=== PATIENT | male | born 1965 | race Caucasian/White ===

== ENCOUNTER 2018-09-17 07:36 | Outpatient (CLI) | payer OTHER ==
--- NOTE | 2018-09-17 08:58 | MRI Report ---
Reason: CERVICALGIA Procedure Date: 09/17/2018 Accession Number: [id number] / [id number] Procedure: MRI - Cervical Spine W/O CPT Code: FULL RESULT: EXAM: MRI CERVICAL SPINE WITHOUT CONTRAST EXAM DATE: 09/17/2018 08:19 AM. CLINICAL HISTORY: Cervicalgia. COMPARISONS: CERVICAL SPINE W/O 02/15/2016 11:00 AM. TECHNIQUE: Multiplanar, multisequence T1-weighted and fluid-sensitive sequences of the cervical spine without contrast. Other: None. FINDINGS: Neurologic Structures: The visualized posterior fossa structures are unremarkable. No signal abnormality in the visualized spinal cord. Alignment: No change in alignment. Bone Marrow: Chronic degenerative endplate signal changes at C5-C6. Interspace Levels/Facets: C1-C2: Unremarkable. C2-C3: Stable degenerative changes including mild left foraminal narrowing and left side facet arthropathy. C3-C4: Mild degenerative disk disease. Mild central canal stenosis from broad-based posterior disk protrusion, stable moderate to severe foraminal stenosis on the left, asymmetric uncinate process spurring and marked facet arthropathy on the left side. Patent right foramen. C4-C5: Mild to moderate central canal stenosis from central to left posterior paracentral disk protrusion, not significantly changed. Mild right and moderate left degenerative foraminal stenosis also appears stable. No additional disk space narrowing. C5-C6: Again seen are findings of moderate to marked degenerative disk disease and mild to moderate facet arthropathy. Bilateral marginal spurring. Circumferential disk bulge with additional asymmetric moderately large left of midline disk protrusion, similar to prior. Moderate central stenosis with ventral cord flattening and severe stenosis of the left foramen and left lateral recess, similar to prior. Also stable are findings of moderate to severe right foraminal stenosis. C6-C7: Stable-appearing moderately large broad-based disk herniation to the left of midline. This indents the ventral thecal sac and extends to the left creating at least moderate stenosis of the left lateral recess before entering the left neural foramen creating the appearance of moderate to severe left foraminal stenosis. Stable-appearing moderate right foraminal stenosis. C7-T1: Unremarkable. Musculature: Normal. No edema or fatty atrophy. Other: None. IMPRESSION: 1. No new or acute abnormality. 2. Stable degenerative changes at L2-L3 including mild left foraminal stenosis and asymmetric left facet arthropathy. 3. Stable degenerative changes at C3-C4 where there is severe left foraminal stenosis. 4. Stable degenerative changes at C4-C5 with mild to moderate central stenosis and left worse than right foraminal stenosis. 5. Stable-appearing degenerative changes at C5-C6 where there is prominent left of midline disk protrusion with spurring, moderate central stenosis, severe left lateral recess stenosis, severe left foraminal stenosis and at least moderate right foraminal stenosis. 6. Stable prominent stenosis as described on the left from a large asymmetric left of midline disk herniation. 7. No additional ventral cord compression or developing cord signal abnormality. 8. No significant change in alignment. 9. Persistent prominent degenerative endplate signal changes at C5-C6. RADIA
== END 2018-09-17 07:37 | disposition home or self-care (01) ==
LOC: DI 07:36
PROVIDERS: ATTEND Physician Assistant
DX: M50.31 Other cervical disc degeneration, high cervical region (principal); M48.02 Spinal stenosis, cervical region; M47.9 Spondylosis, unspecified; M50.221 Other cervical disc displacement at C4-C5 level
CPT/HCPCS: 72141

== ENCOUNTER 2019-02-09 10:48 | Outpatient (CLI) | payer OTHER ==
[2019-02-09 11:59] VITALS: BP 110/70
--- NOTE | 2019-02-09 11:59 | CONSULTATION NOTE ---
Information from patient questionnaire entered by Ling Farmer. I have reviewed and concur with the information entered by Ling Farmer. This document represents the service I personally performed and the decisions made by me, Shasha Almaraz, RN, MSN, ATTENDANT [employer]. - History of Present Illness Chief Complaint: Snoring, Observed pauses in breathing, Fatigue The patient presents here today for evaluation of possible sleep disordered breathing. He has been observed to snore and have pauses in breathing with fatigue for the past 8 years. He had a sleep study done several years ago. He was told he did not have apnea but had restless leg syndrome which was not bothering him or his spouse so no treatment was indicated. When he recently went to the [place] for pending prison , upon review of his medical records, he was informed that he had apnea in the sleep study previously completed and was advised to have another sleep study for re-evaluation. The patient tells me that he normally goes to bed around 10:15 pm, and it takes him approximately 10-15 minutes to fall asleep. He has been told that he snores loudly and irregularly at night. He is wakened by spouse to sleep on his side where snoring is less. He has been observed to stop breathing in his sleep. His sometimes has to sleep in another room due to the loudness of his snoring. He can recall waking up on the average of 1-2 times during the night. Most of the time he wakes up because of using the bathroom. He has occasionally awakened for his own snoring but not choking or gasping for air. There is a lot of tossing and turning in his sleep. Generally he can recall having dreams. He usually wakes up at 5:30 am and sometimes feels refreshed. He usually does have a morning headache. During the day he complains of feeling sleepy and fatigued. He has never fallen asleep while driving nor has any accident due to sleepiness. He usually naps for about 60 minutes during the day on weekend when working and opportunity. Since prison, he napped daily for 1-2 hours until he went on vacation recently. He reports if busy, he does not nap. If he naps, upon falling asleep during the day he denies having vivid dreams. There is somniloquy (sleep talking) but no somnambulism (sleep walking). He has never experienced sleep paralysis, cataplexy, or symptoms of restless leg syndrome. He denies having impaired concentration during the day. 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 Patient is and lives in [place]. Smoked in the past 12 months: Yes Cigarettes per day (20/pack): 10 Years of smokin Smoking Pack Years: 10.0 Alcohol use: Yes Amount and frequency: 1 beer 1-2 times a week Caffeine use: Yes Amount and frequency: 2 cups of coffee a day - Family History Family history of sleep disordered breathing: No - Review of Systems Weight loss over past 5 years: 8 pounds since prison Cardiovascular: reports: high blood pressure. denies: palpitations, chest pain, irregular heart rate or pulse, leg or foot swelling, have to sleep sitting up, other: Respiratory: denies: shortness of breath, wheeze, sputum production, chronic cough, other: Gastrointestinal: denies: heartburn, difficulty swallowing (nocturia), nausea, vomitting, diarrhea, abdominal pain, other: Urinary: reports: frequency Neurological: denies: headaches, seizure, head trauma, disorientation, speech dysfunction, gait or balance problems, fainting or unconsciousness, other: Psychiatric: denies: Attention Deficit Hyperactivity, anxiety, depression, mood disorder, claustrophobia, other: Ear/Nose/Throat: reports: wisdom teeth removed. denies: nasal congestion, sinus problems, nose bleeds, dry mouth/throat, hoarseness, injury to nose, tonsillectomy, other: Endocrine: denies: thyroid disease, history of goiter, sluggishness, too hot or cold, excessive thirst, increased appetite, increased urination, unexplained weakness, other: Musculoskeletal: reports: joint pain (intermittent), neck pain (recent MRI completed), back pain (intermittent). denies: joint swelling, muscle pain or cramping, mobility problems, other: Immunologic: denies: sneezing, rash, itching, allergies to food or environment, other: - Physical Examination Blood Pressure: 110/70 Cuff size: long Heart Rate: 72 O2 Saturation: 98 Height: 6 ft 3 in Weight (kg): 96.162 kg Body Mass Index: 26.4 BMI Classification: Overweight Neck circumference: 16.5 HEENT: No craniofacial malformation Nostrils: partially obstructed Turbinates: normal Septum: deviated right Mouth and throat: narrow oropharynx Soft palate: long Hard palate: normal Uvula: normal Tongue: normal in size Tonsils: small Chin and jaw: Overjet Neck: normal w/o lymphadenopathy or thyromegaly Heart: regular rate and rhythm Lungs: clear bilaterally Abdomen: soft, non-tender Extremities: no edema or clubbing Neurologic: intact - Impression 1. Suspected Obstructive Sleep Apnea-Hypopnea Syndrome, as suggested by a history of loud and irregular snoring, observed cessation of breath while asleep, frequent awakening during the night, unrefreshed sleep, and excessive daytime sleepiness requiring a nap when he is not too busy. Narrow oropharynx and obesity are common predisposing factors for obstructive sleep apnea-hypopnea syndrome. Essential hypertension has been shown to be caused by untreated sleep apnea. I recommend proceeding to polysomnography to confirm the diagnosis and to assess severity. If the patient has significant sleep disordered breathing, a manual CPAP titration study will also be performed to find the optimal treatment pressure. I informed the patient of what the sleep studies involve and after some discussion, obtained agreement to proceed. The pathophysiology of obstructive sleep apnea-hypopnea syndrome was discussed with the patient and health risks of cardiovascular and cerebrovascular disease if not treated. AAS brochure for obstructive sleep apnea-hypopnea syndrome given and reviewed. Risks of drowsy driving discussed in detail and patient advised to avoid long distance driving and to tobacco sample puller at the first sign of drowsiness. Patient agreed to plan. - Plan Schedule polysomnography Avoid long distance driving or driving when feeling sleepy. Avoid alcohol, sedative and muscle relaxant around bedtime. Attempt to lose weight. Review instructions provided by trained office staff on how to prepare for the sleep study. Return for follow-up after sleep study completed to review results and initiate therapy. I spent 100% of this 35 minute visit face to face with the patient with greater than 50% of this was spent time counseling the patient and coordination of care.
== END 2019-02-09 10:49 | disposition home or self-care (01) ==
LOC: SC 10:48
PROVIDERS: ATTEND Nurse Practitioner Family
DX: R06.83 Snoring (principal); G47.8 Other sleep disorders; G47.10 Hypersomnia, unspecified; E66.3 Overweight; Z68.26 Body mass index [BMI] 26.0-26.9, adult
CPT/HCPCS: 99203; 99212

== ENCOUNTER 2019-02-27 19:33 | Outpatient (CLI) | payer OTHER | END 2019-02-27 19:34 | disposition home or self-care (01) | LOC: SC 19:33 | PROVIDERS: ATTEND Internal Medicine Pulmonary Disease | DX: G47.33 Obstructive sleep apnea (adult) (pediatric) (principal); G47.61 Periodic limb movement disorder | CPT/HCPCS: 95810 ==

== ENCOUNTER 2019-03-10 10:10 | Outpatient (CLI) | payer OTHER ==
--- NOTE | 2019-03-10 11:07 | SLEEP CARE CONSULTATION ---
Information from patient questionnaire entered by Ling Farmer. I have reviewed and concur with the information entered by Ling Farmer. This document represents the service I personally performed and the decisions made by me, Shasha Almaraz RN, MSN, CONSUMER SERVICES ADVISOR. History of Present Illness Initial [place] Sleepiness Scale score: 8 Current [place] Sleepiness Scale score: 2 Additional HPI information: FIORELLA YIN returns for follow up of the recently performed polysomnography and patient was informed of the findings: I explained the pathophysiology behind obstructive sleep apnea. We then spent quite a bit of time discussing different treatment options. For mild obstructive sleep apnea, surgery and oral appliance are alternatives to nasal CPAP therapy but in moderate or severe cases, nasal CPAP is the most effective and reliable treatment. Because apnea is primarily in supine position, then positional management therapy could be effective. Methods discussed such as positioning with pillows, using a T-shirt with tennis balls in the back, and shown commercial products that have a pillow format on back to prevent supine sleep. I reviewed the impact of weight changes on sleep apnea and strongly recommended losing weight. After some discussion, the patient opted to go positional therapy. [facility] patient education and Non Pap treatment pamphlets reviewed and given to patient. Patient counseled not drink alcohol less than 4 hours before bedtime as it can increase snoring and apnea. Patient does not drink alcohol. Patient was cautioned about risks of drowsy driving until sleepiness symptoms resolve. Patient denies drowsy driving. [facility] patient education on snoring and sleep apnea given and reviewed at last visit. Sleep Study - Polysomnography Polysomnography findings: The quality of the study is good. The patient had normal sleep efficiency. The sleep architecture was normal as well. Respiratory monitoring showed mild obstructive sleep apnea-hypopnea (AHI = 6.5) associated with oxyhemoglobin desaturation but no significant hypoxia (britton oxygen saturation of 90%) or sleep fragmentation. The respiratory events occurred almost exclusively during supine REM sleep (supine AHI = 10.9; non-supine = 0.00). Snore was light to moderate in intensity. There was severe periodic leg movement of sleep not associated with sleep fragmentation. Cardiac rhythm was normal sinus rhythm without significant arrhythmia. No abnormal behavior (parasomnia) observed during the night. Allergies and Home Medications Known drug allergies: Yes (penicillin) Home medication list reviewed: Yes (no change from last visit) Review of Systems Review of systems same as previous: Yes (no change stated) Physical Exam Blood Pressure: 120/70 Cuff size: long () Heart Rate: 71 O2 Saturation: 98 Weight (kg): 96.615 kg Impression and Plan 1. Obstructive Sleep Apnea-Hypopnea Syndrome, mild, with lowest oxygen saturation of 90%. Possibly this is the cause of the patients symptoms of unrefreshed sleep, and excessive daytime sleepiness. As mentioned above, the patient will be started positional therapy. He will use the slumber bump commercial method and brochure given. Until received, he is advised he can avoid supine sleep by using pillow positioning. I will have him return in 2 months to check benefit of treatment. If no benefit then other treatment options will again be reviewed. 2. Periodic limb movement, severe, that did not fragment patients sleep. Periodic limb movement of sleep (PLMS) is characterized by episodes of repetitive limb movements that occur during sleep and usually involve the lower limbs. The etiology is unknown but can be associated with restless leg syndrome (RLS), neuropathy, spinal cord diseases, kidney disease, rheumatological disorders, narcolepsy, obstructive sleep apnea, and REM sleep behavior disorder. Other factors that can increase PLMS and/or RLS are heredity and iron deficiency as reflected by a low serum ferritin level below 50 to 75mcg / L. Several medications can precipitate or aggravate PLMS such as selective serotonin re-uptake inhibitor antidepressants, tricyclic antidepressants, lithium, and dopamine receptor antagonists with the exception of bupropion. Caffeine can also aggravate PLMS and should be avoided. Sleep hygiene methods can also improve sleep as well as lifestyle changes such as regular exercise. Patient was advised that since he also reports RLS symptosm then further evaluation is indicated. He is to follow up with PCP to rule out if iron deficiency anemia. Patient agreed with plan. * Positional therapy * Attempt to lose weight. * Avoid alcohol consumption near bedtime. * The patient is again cautioned about driving until sleepiness completely resolves. * Follow up with PCP to rule out cause of PLMS / RLs such as iron deficiency anemia. * Return in 2 months, I will assess response to therapy and compliance at that time. I spent 100% of this 25 minute visit face to face with the patient with greater than 50% of this was spent time counseling the patient and coordination of care.
[2019-03-10 11:08] VITALS: BP 120/70
== END 2019-03-10 10:11 | disposition home or self-care (01) ==
LOC: SC 10:10
PROVIDERS: ATTEND Nurse Practitioner Family
DX: G47.33 Obstructive sleep apnea (adult) (pediatric) (principal); G47.61 Periodic limb movement disorder
CPT/HCPCS: 99212; 99214

== ENCOUNTER 2022-12-06 19:32 | Emergency (ER) | payer OTHER ==
[2022-12-06 19:48] VITALS: BP 131/79
[2022-12-06] MEDS ORDERED: oxyCODONE/ACET 5/325 Prepack 4 PO STA (20:11)
[2022-12-06] MEDS ORDERED: CYCLOBENZAPRINE 10 MG TABLET PO STA (20:11)
[2022-12-06] MEDS ORDERED: oxyCODONE 5 MG TABLET PO STA (20:11)
[2022-12-06] MEDS ORDERED: NAPROXEN 250 MG TABLET PO STA (20:11)
--- NOTE | 2022-12-06 20:14 | ED Physician Documentation ---
History of Present Illness - Stated complaint Stated Complaint: RT LEG PX - Chief complaint Chief Complaint: Ext Problem - History obtained from History obtained from: Patient - Additonal information Additional information: 57-year-old gentleman with history of recurrent self-diagnosed sciatica. He had a similar episode to this in February 2021, but it was milder. For the last several weeks he has had right low back pain radiating into the right leg gets worse with movements. Sometimes very hard to sleep. He denies numbness in the legs or around the groin. No incontinence. No fevers. PD PAST MEDICAL HISTORY - Past Medical History Cardiovascular: Hypertension, High cholesterol Endocrine/Autoimmune: Type 2 diabetes - Past Surgical History Past Surgical History: No - Present Medications Home Medications: Ambulatory Orders Medication Instructions Recorded Confirmed lisinopriL [Lisinopril] 10 mg PO DAILY 04/12/15 04/12/15 Simvastatin 01/24/16 Cyclobenzaprine [Flexeril] 10 mg PO TID PRN #20 tablet 12/06/22 Oxycodone HCl/Acetaminophen 1 - 2 each PO Q6H PRN #14 tablet 12/06/22 [Percocet 5-325 mg Tablet] predniSONE [Deltasone] 20 mg PO [id number] #21 tab 12/06/22 - Allergies Allergies/Adverse Reactions: Allergies Allergy/AdvReac Type Severity Reaction Status Date / Time No Known Drug Allergies Allergy Verified 04/12/15 23:23 - Social History Does the pt smoke?: Yes Smoking Status: Current every day smoker Does the pt drink ETOH?: Yes Does the pt have substance abuse?: No - Immunizations Immunizations are current?: Yes PD ED PE NORMAL - Vitals Vital signs reviewed: Yes - General General: Alert and oriented X 3, No acute distress - Back Back: No spinal TTP, Other (Positive opposite straight leg raise test. Tender in the sciatic notch.) - Extremities Extremities: Other (The patient has equal and normal Achilles and patellar reflexes bilaterally. Normal sensation in all areas of the legs. Patient denies saddle anesthesia. Normal strength in flexion-extension at the ankles, knees, and flexion of the hips.) - Neuro Neuro: Alert and oriented X 3, Normal speech Results - Vitals Vitals: Vital Signs - 24 hr 12/06/22 19:45 Temperature 35.9 C L Heart Rate 72 Respiratory 16 Rate Blood Pressure 131/79 H O2 Saturation 98 Oxygen O2 Source Room air PD Medical Decision Making - ED course ED course: This patient has seemingly uncomplicated musculoskeletal back pain. The patient has no "red flags." Specifically denies IV drug use, fevers, incontinence, saddle anesthesia. Spinal epidural abscess was considered, given that the patient has no fever, is not diabetic, has no spinal tenderness, does not use IV drugs, and has no bilateral neurologic symptoms, the diagnosis of spinal epidural abscess is considered exceedingly unlikely. Departure - Departure Disposition: Home, Self Care Clinical Impression: Sciatica Condition: Good Record reviewed to determine appropriate education?: Yes Instructions: ED Sciatica Prescriptions: predniSONE [Deltasone] 20 mg PO [id number] #21 tab Cyclobenzaprine [Flexeril] 10 mg PO TID PRN #20 tablet PRN Reason: Spasms Oxycodone HCl/Acetaminophen [Percocet 5-325 mg Tablet] 1 - 2 each PO Q6H PRN #14 tablet PRN Reason: pain Comments: I sent your prescription electronically to the [email or web address] pharmacy. Keep an eye on your blood sugars and discontinue the prednisone steroid if your blood sugars are over 250. Follow-up with your physician, consider physical therapy and/or MRI. Return for new or worsening symptoms. I am prescribing a short course of narcotic pain medication for you. These are potentially dangerous and addictive medications that should be used carefully. These medications may constipate you. Take an [id number] stool softener (docusate) twice daily with plenty of water while taking these medications. If you go 24 hours without a bowel movement, take [id number] miralax, per package instructions. Do not drink or drive while taking these medications. If you received narcotic or sedating medications while in the emergency department, do not drive for 24 hours. Store this medication in a safe, secure place and out of reach of children. It is a violation of federal law to give or sell this medication to another person or to use in a manner other than prescribed. The ED will not refill narcotic prescriptions, including prescriptions lost or stolen. To dispose of unwanted medications: 1. [facility] at [address] in [facility] has a medication drop box. They accept prescription medications (in pill form) Thursday through Thursday 9:00 a.m. to 5:00 p.m. 2. The [facility] [employer] accepts prescription medications (in pill form only) for disposal year round. Call for more information. 3. Contact the [facility] for the next [facility] sponsored prescription drug collection event. , [phone], or [phone]; Note that many narcotic pain relievers also contain Tylenol/acetaminophen. Please ensure that your total dose of acetaminophen from all sources does not exceed 3 g (3000 mg) per day.
[2022-12-06] MEDS ORDERED: predniSONE 20 MG TABLET PO STA (20:15)
== END 2022-12-06 20:28 | disposition home or self-care (01) ==
LOC: ED 19:32
DX: M54.30 Sciatica, unspecified side (principal); E11.9 Type 2 diabetes mellitus without complications; F17.200 Nicotine dependence, unspecified, uncomplicated
CPT/HCPCS: 99282; 99283; A9270; J7512

== ENCOUNTER 2023-01-16 12:36 | Outpatient (CLI) | payer OTHER ==
--- NOTE | 2023-01-16 16:10 | MRI Report ---
PROCEDURE: LUMBAR SPINE WO INDICATIONS: SACRAL SPINE - LUMBAGO WITH SCIATICA TECHNIQUE: Noncontrast sagittal T1 spin echo and T2 fast echo, sagittal STIR, axial T1 and T2 fast spin echo thr ough the lumbar spine. In cases with scoliosis, additional coronal T2 fast spin echo may be performe d. COMPARISON: None. FINDINGS: Image quality: Excellent. Alignment and Curvature: There is trace retrolisthesis of L4 on L5, L5 on S1.. Bone Marrow: Marrow is of normal overall signal. No acute vertebral body compression fractures. Spinal Cord: Conus medullaris terminates at the L1 level. Visualized cord demonstrates normal signa l and size. Paraspinous Soft Tissues: No paravertebral masses. Simple left exophytic left renal cysts. Discs Multilevel disc desiccation most severe at L5-S1. T12-L1: No disc bulge, spinal stenosis or foraminal narrowing. L1-L2: No disc bulge, spinal stenosis or foraminal narrowing. L2-L3: Minimal disc bulge without spinal stenosis or foraminal narrowing. Minimal epidural lipomat osis. L3-L4: Mild disc bulge without spinal stenosis. Minimal left foraminal narrowing with facet and lig amentum flavum hypertrophy. L4-L5: Mild disc bulge with superimposed posterior central protrusion. Moderate spinal stenosis. Mi nimal to mild left foraminal narrowing with facet and ligamentum flavum hypertrophy. L5-S1: Mild disc bulge including a right lateral/foraminal component. Severe left and moderate to s evere right foraminal narrowing with slight appearance of compression of the exiting left L5 nerve ro ots. Facet hypertrophy is present. IMPRESSION: Foraminal narrowing is present most severe at L5-S1 with mild compression of the exiting left L5 nerv e root secondary to facet arthropathy. Moderate spinal stenosis L4-5 secondary to disc bulge/protrusion with contributing effect of facet/li gament of flavum arthropathy. Reviewed by: Vandana Gaffney MD on 01/16/2023 4:08 PM PDT Approved by: Vandana Gaffney MD on 01/16/2023 4:08 PM PDT Station ID: [id number]
--- NOTE | 2023-01-16 20:35 | MRI Report ---
PROCEDURE: PELVIS WO INDICATIONS: SACRAL SPINE - LUMBAGO WITH SCIATICA TECHNIQUE: Noncontrast coronal T1 spin echo, STIR, and T2 haste with and without fat saturation; axial T1 spin e cho, STIR, and T2 haste; and sagittal T1 spin echo and T2 haste through the pelvis. COMPARISON: Lumbar spine MRI 01/16/2023. FINDINGS: Image quality: Excellent. Bones and joints: Bone marrow of the pelvic ring and proximal femurs show normal signal throughout. No acute sacral fracture. No suspicious marrow replacing mass. No avascular necrosis of the femoral heads. Degenerative disc disease and facet hypertrophy are seen in the included lumbar spine, better evaluated on the separate lumbar spine MRI performed on the same day. Tendons: The gluteus medius and minimus tendons appear intact. The iliopsoas tendon appears intact, without adjacent bursal fluid collections. The origin of the hamstring tendon is intact at the isch ial tuberosity. The tendons for the direct and indirect heads of the rectus femoris muscle appear in tact. Soft tissues: Lumbosacral plexus nerve roots are unremarkable. Piriformis muscles are symmetric. No p resacral mass. Mildly increased T2-weighted signal is seen within the anterior portions of the radius medius and minimus muscles on the right without significant fatty infiltration. The distal gluteus t endons are intact. Visualized muscles otherwise demonstrate normal bulk and internal signal. The pro ximal sciatic neurovascular bundle appears normal adjacent to the hamstring tendons. No acute abnorma lity is seen in the included pelvis. IMPRESSION: 1.Mildly increased T2-weighted signal within the right anterior gluteus minimus and gluteus medius mu scles is suspicious for mild or early denervation changes. The distal gluteus tendons are intact. 2.Degenerative changes in the included lumbar spine, better evaluated on the dedicated lumbar spine M RI performed on the same day. Please see the report from that exam for detailed findings. 3.Sacral nerve roots and lumbosacral plexus are unremarkable without extrinsic compression or soft ti ssue mass. Reviewed by: Shamir Oliver MD on 01/16/2023 8:34 PM PDT Approved by: Shamir Oliver MD on 01/16/2023 8:34 PM PDT Station ID: [id number]
== END 2023-01-16 12:37 | disposition home or self-care (01) ==
LOC: DI 12:36
PROVIDERS: ATTEND Student in an Organized Health Care Education/Training Program
DX: M47.26 Other spondylosis with radiculopathy, lumbar region (principal); M48.061 Spinal stenosis, lumbar region without neurogenic claudication; M47.817 Spondylosis without myelopathy or radiculopathy, lumbosacral region; M51.36 Other intervertebral disc degeneration, lumbar region; M51.37 Other intervertebral disc degeneration, lumbosacral region; M48.07 Spinal stenosis, lumbosacral region